=== PATIENT | female | born 2000 | race Caucasian/White ===

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

== ENCOUNTER 2018-02-04 10:42 | Day surgery (SDC) | payer MEDICAID ==
[2018-02-04] MEDS ORDERED: Propofol 10 mg/ml Inj (20 ML) ONE (11:56)
[2018-02-04] MEDS ORDERED: Sodium Chloride 0.9% 1,000 ML IV SCH (13:00)
[2018-02-04 14:10] VITALS: BP 111/68; TEMP 97.5
[2018-02-04 14:13] VITALS: PULSE 99; RESP 19; O2SAT 100
== END 2018-02-04 14:14 | disposition home or self-care (01) ==
LOC: ENDO 10:42
PROVIDERS: ATTEND Internal Medicine Gastroenterology
DX: K64.0 First degree hemorrhoids (principal); R93.3 Abnormal findings on diagnostic imaging of other parts of digestive tract
CPT/HCPCS: 45380; 84703; 88305; J2001; J2704; J7030; J7040

== ENCOUNTER 2018-08-23 19:50 | Observation (INO) | payer MEDICAID ==
[2018-08-23 22:20] LABS: BASO # 0.01 K/mm3 (0.0-2.0); BASO % 0.2 % (0.0-3.0); EOS # 0.1 (0.0-0.7); EOS % 2.5 % (1.5-5.0); HEMOGLOBIN 11.2 g/dL (12.0-16.0); LYMPH % 48.8 % (22.0-35.0); MEAN CELL VOLUME 83.7 fl (80.0-105.0); MEAN CORPUSCULAR HEMOGLOBIN 27.2 pg (25.0-35.0); MEAN CORPUSCULAR HGB CONC 32.5 g/dl (31.0-37.0); MEAN PLATELET VOLUME 10.4 fl (7.0-11.0); MONO # 0.2 (0.1-0.6); MONO % 3.7 % (1.0-6.0); RBC 4.12 10^6/uL (3.5-6.1); WHITE BLOOD COUNT 4.1 10^3/uL (4.5-11.0)
[2018-08-23 22:25] LABS: URINE BILIRUBIN NEGATIVE (NEGATIVE); URINE BLOOD NEGATIVE (NEGATIVE); URINE GLUCOSE (UA) NEGATIVE (NEGATIVE); URINE LEUKOCYTE ESTERASE TRACE Leu/uL (NEGATIVE); URINE PROTEIN NEGATIVE mg/dL (<30 mg/dL); URINE UROBILINOGEN 0.2 E.U./dL (<1 E.U./dL)
[2018-08-23 22:26] LABS: HCG,QUALITATIVE URINE NEGATIVE (NEGATIVE); URINE APPEARANCE CLEAR (CLEAR); URINE COLOR LIGHT YELLOW (YELLOW)
[2018-08-23 22:28] LABS: INR 1.05; PARTIAL THROMBOPLASTIN TIME 32.9 Seconds (26.9-38.3); PROTHROMBIN TIME 11.6 SECONDS (9.4-12.5)
[2018-08-23 22:31] LABS: ALB/GLOB RATIO 1.1 (1.1-1.8); ALBUMIN 4.2 g/dL (3.0-4.8); ALT/SGPT 37 U/L (7-56); AST/SGOT 41 U/L (14-36); BLOOD UREA NITROGEN 4 mg/dL (7-21); CALCIUM 9.3 mg/dL (8.4-10.5); GFR NON-AFRICAN AMERICAN > 60; LIPASE 57 U/L (23-300)
[2018-08-23 22:35] LABS: URINE EPITHELIAL CELLS 0 - 2 /hpf (0-5); URINE WBC 0 - 2 /hpf (0-6)
[2018-08-23] MEDS ORDERED: Iohexol 350 MG/100 ML VIAL ONE (22:43)
[2018-08-24] MEDS ORDERED: Sodium Chloride 0.9% 1,000 ML IV STA (00:16)
--- NOTE | 2018-08-24 00:17 | ED PDOC ---
Arrival/HPI - General Chief Complaint: Abdominal Pain Time Seen by Provider: 08/23/18 20:46 Historian: Patient - History of Present Illness Narrative History of Present Illness (Text): 08/24/18 00:25 18 y/o female with no significant PMH presents to the Emergency department c/o right flank pain x 1 day. Past Medical History - Provider Review Nursing Documentation Reviewed: Yes - Infectious Disease Hx of Infectious Diseases: None - Cardiac Hx Pacemaker: No - Hematological/Oncological Hx Blood Transfusions: No Hx Blood Transfusion Reaction: No - Musculoskeletal/Rheumatological Hx Musculoskeletal Disorders: No - Psychiatric Hx Emotional Abuse: No Hx Physical Abuse: No Hx Substance Use: No - Anesthesia Hx Anesthesia Reactions: No Hx Malignant Hyperthermia: No - Suicidal Assessment Feels Threatened In Home Enviroment: No Family/Social History - Physician Review Nursing Documentation Reviewed: Yes Family/Social History: No Known Family HX Smoking Status: Never Smoked Hx Alcohol Use: No Hx Substance Use: No Allergies/Home Meds Allergies/Adverse Reactions: Allergies No Known Allergies Allergy (Verified 08/23/18 21:08) Home Medications: Home Meds Medication Instructions Recorded Confirmed Ibuprofen [Motrin] 200 mg PO PRN PRN 02/04/18 02/04/18 Review of Systems - Review of Systems Constitutional: Normal. absent: Fevers Eyes: Normal. absent: Vision Changes, Photophobia ENT: Normal. absent: Sore Throat, Epistaxis Respiratory: Normal. absent: SOB, Cough Cardiovascular: Normal. absent: Chest Pain, Palpitations, Syncope Gastrointestinal: Abdominal Pain. absent: Stool Changes, Nausea, Vomiting, Appetite Changes Genitourinary Female: Normal. absent: Dysuria, Frequency, Vaginal Bleeding, Vaginal Discharge Musculoskeletal: Normal. absent: Back Pain Skin: Normal. absent: Rash, Skin Lesions Neurological: Normal. absent: Headache, Dizziness Endocrine: Normal Hemo/Lymphatic: Normal Psychiatric: Normal Physical Exam Vital Signs Reviewed: Yes Vital Signs Temp Pulse Resp BP Pulse Ox 08/23/18 23:28 92 H 16 120/70 98 08/23/18 21:08 98.7 F 95 H 18 121/71 98 Temperature: Afebrile Blood Pressure: Normal Pulse: Regular Respiratory Rate: Normal Appearance: Positive for: Well-Appearing, Non-Toxic, Comfortable Pain Distress: None Mental Status: Positive for: Alert and Oriented X 3 - Systems Exam Head: Present: Atraumatic, Normocephalic Pupils: Present: PERRL Extroacular Muscles: Present: EOMI Conjunctiva: Present: Normal Mouth: Present: Moist Mucous Membranes Neck: Present: Normal Range of Motion. No: Meningeal Signs, Paraspinal Tenderness Respiratory/Chest: Present: Clear to Auscultation, Good Air Exchange. No: Respiratory Distress, Accessory Muscle Use Cardiovascular: Present: Regular Rate and Rhythm, Normal S1, S2, Peripheal Pulses Present Abdomen: Present: Tenderness (exquisite to right flank), Normal Bowel Sounds, Guarding (right flank). No: Distention, Peritoneal Signs Back: Present: Normal Inspection. No: CVA Tenderness, Paraspinal Tenderness Upper Extremity: Present: Normal Inspection, Normal ROM, NORMAL PULSES, Neurovascularly Intact, Capillary Refill < 2s. No: Cyanosis, Edema, Tenderness, Temperature Abnormalties Lower Extremity: Present: Normal Inspection, NORMAL PULSES, Normal ROM, Neurovascularly Intact, Capillary Refill < 2 s. No: Edema, Temperature Abnormalties Neurological: Present: GCS=15, CN II-XII Intact, Speech Normal, Motor Func Grossly Intact, Normal Sensory Function, Gait Normal Skin: Present: Warm, Dry, Normal Color. No: Rashes Psychiatric: Present: Alert, Oriented x 3, Normal Insight, Normal Concentration, Normal Affect, Normal Mood Medical Decision Making ED Course and Treatment: 08/24/18 00:[address] Odonnell who accepted patient for inpatient admission to remote telemetry floor with diagnosis of abdominal wall infection. Will notify medical staff physician. - Lab Interpretations Lab Results: PT 11.6 SECONDS (9.4-12.5) 08/23/18 22:04 INR 1.05 08/23/18 22:04 APTT 32.9 Seconds (26.9-38.3) 08/23/18 22:04 Total Bilirubin 0.4 mg/dL (0.2-1.3) 08/23/18 22:04 AST 41 U/L (14-36) H D 08/23/18 22:04 ALT 37 U/L (7-56) 08/23/18 22:04 Alkaline Phosphatase 59 U/L (38-126) 08/23/18 22:04 Total Protein 7.9 g/dL (5.8-8.3) 08/23/18 22:04 Albumin 4.2 g/dL (3.0-4.8) 08/23/18 22:04 Globulin 3.7 gm/dL 08/23/18 22:04 Albumin/Globulin Ratio 1.1 (1.1-1.8) 08/23/18 22:04 Lipase 57 U/L (23-300) 08/23/18 22:04 Urine Color Light yellow (YELLOW) 08/23/18 22:04 Urine Appearance Clear (CLEAR) 08/23/18 22:04 Urine pH 7.0 (4.7-8.0) 08/23/18 22:04 Ur Specific [place] 1.015 (1.005-1.035) 08/23/18 22:04 Urine Protein Negative mg/dL (<30 mg/dL) 08/23/18 22:04 Urine Glucose (UA) Negative mg/dL (NEGATIVE) 08/23/18 22:04 Urine Ketones Negative mg/dL (NEGATIVE) 08/23/18 22:04 Urine Blood Negative (NEGATIVE) 08/23/18 22:04 Urine Nitrate Negative (NEGATIVE) 08/23/18 22:04 Urine Bilirubin Negative (NEGATIVE) 08/23/18 22:04 Urine Urobilinogen 0.2 E.U./dL (<1 E.U./dL) 08/23/18 22:04 Ur Leukocyte Esterase Trace Tao/uL (NEGATIVE) H 08/23/18 22:04 Urine RBC None /hpf (0-2) 08/23/18 22:04 Urine WBC 0 - 2 /hpf (0-6) 08/23/18 22:04 Ur Epithelial Cells 0 - 2 /hpf (0-5) 08/23/18 22:04 Urine HCG, Qual Negative (NEGATIVE) 08/23/18 22:04 Urine HCG, Qual Negative (NEGATIVE) 08/23/18 22:04 - RAD Interpretation Narrative RAD Interpretations (Text): CT Abdomen and Pelvis: LUNG BASES: The lung bases appear clear. No pleural effusions are seen. LIVER: Mild hepatomegaly. The liver measured 16.8 cm in the midclavicular line. GALLBLADDER AND BILE DUCTS: The gallbladder appears within normal limits. No radioopaque gallstones are seen. No biliary ductal dilatation is evident. PANCREAS: Unremarkable. SPLEEN: Unremarkable. ADRENAL GLANDS: Unremarkable. KIDNEYS, URETERS, AND BLADDER: The kidneys appear within normal limits. There is no hydronephrosis or hydroureter. No urinary calculi are seen. The urinary bladder appeared normal in size and configuration. STOMACH AND BOWEL: Unremarkable appearance of the stomach. No evidence of bowel obstruction. Mild mucosal wall thickening and fluid in the lumen is seen in the ileal small intestinal tract thought compatible with ileitis. Infectious or inflammatory etiologies are thought most likely. No evidence suggesting colitis. APPENDIX: No evidence of acute appendicitis on CT examination. PERITONEUM: No free fluid. No free air. LYMPH NODES: No lymphadenopathy is evident. REPRODUCTIVE: Multiple bilateral ovarian follicles are identified. Otherwise, unremarkable as visualized. VASCULATURE: No evidence of abdominal aortic aneurysm. BONES: No aggressive appearing osseous lesion. No acute osseous pathology evident. SOFT TISSUES: In the anterolateral soft tissues of the abdominal wall; there is identified subcutaneous edema and stranding thought compatible with cellulitis. Edema is interposed between the muscle layers of the abdominal wall compatible with myositis and possible fasciitis. No definite abscess formation detected. IMPRESSION: 1. Findings described above involving the anterolateral abdominal wall musculature and subcutaneous tissues compatible with myositis and possible fasciitis, with associated cellulitis. 2. Evidence of ileitis. 3. Mild hepatomegaly. Electronically signed on Aug 24, 2018 12:06:23 AM EDT by: Neida Hernández M.D., Certified by LUZ MARIA CONTRERAS, Neuroradiology Radiology Orders: 08/23/18 21:22 CHEST PORTABLE [RAD] Stat 08/23/18 21:23 ABD & PELVIS IV CONTRAST ONLY [CT] Stat Channel Machine Operator: Radiologist Disposition/Present on Arrival - Present on Arrival History of DVT/PE: No History of Uncontrolled Diabetes: No Urinary Catheter: No History of Decub. Ulcer: No History Surgical Site Infection Following: None - Disposition Forms: [employer] (Portuguese)
[2018-08-24] MEDS ORDERED: Vancomycin 1gm in NS 250ml 1 GM/250 ML BAG IVPB STA (00:22)
[2018-08-24] MEDS ORDERED: Piperacillin/Tazobact 3.375 gm 100 ML IVPB STA (00:22)
--- NOTE | 2018-08-24 00:58 | CP.PCM.HP ---
<Syd Bobby - Last Filed: 08/24/18 01:49> History of Present Illness - History of Present Illness History of Present Illness: Dr Bobby [facility] Hospitalist Service 18F pmhx of chronic abdominal pain of 2 years duration presents to the Ed with new onset R sided flank pain that is sharp, needle like in nature, and feels like there is a mass underlying. Pt first noticed the pain 2 days ago and has been constant in nature since. Pt did not take anything at home and was just waiting for the pain to go away. Pt says the pain has not gotten better while she's been in ER. Pt says its tender to touch. She has not noticed any new lesions nor can she feel any worsening swelling. Denies any fevers chills, SOB nausea, vomiting, rash, bleeding, pain with [place], back pain, adnexal tenderness, decreased appetite, change in stool/urine PMHx: 2 year undefined abdominal pain PSx: Colonoscopy 02/12 w/ biopsy - normal ileum tissue FH: denies Soc: denies smoking etoh or drug use Allergies: Denies Home Rx: none Present on Admission - Present on Admission Any Indicators Present on Admission: No Review of Systems - Review of Systems All systems: reviewed and no additional remarkable complaints except (as per HPI) - Constitutional Constitutional: absent: Chills, Fever, Headache, Night Sweats, Weight Gain, Weight Loss, Weakness - EENT Eyes: absent: Change in Vision Nose/Mouth/Throat: absent: Dysphagia - Cardiovascular Cardiovascular: absent: Chest Pain, Diaphoresis, Dyspnea, Pain Radiating to Arm/Neck/Jaw, Orthopnea - Respiratory Respiratory: absent: Cough Past Patient History - Infectious Disease Hx of Infectious Diseases: None - Past Social History Smoking Status: Never Smoked - CARDIAC Hx Pacemaker: No - HEMATOLOGICAL/ONCOLOGICAL Hx Blood Transfusions: No Hx Blood Transfusion Reaction: No - MUSCULOSKELETAL/RHEUMATOLOGICAL Hx Musculoskeletal Disorders: No - PSYCHIATRIC Hx Emotional Abuse: No Hx Physical Abuse: No Hx Substance Use: No - SURGICAL HISTORY Hx Surgeries: No - ANESTHESIA Hx Anesthesia Reactions: No Hx Malignant Hyperthermia: No Meds Allergies/Adverse Reactions: Allergies Allergy/AdvReac Type Severity Reaction Status Date / Time No Known Allergies Allergy Verified 08/23/18 21:08 Physical Exam - Constitutional Appears: Well, Non-toxic, No Acute Distress - Head Exam Head Exam: ATRAUMATIC, NORMAL INSPECTION - Eye Exam Eye Exam: EOMI, Normal appearance, PERRL. absent: Scleral icterus Pupil Exam: NORMAL ACCOMODATION - ENT Exam ENT Exam: Mucous Membranes Moist - Neck Exam Neck exam: Positive for: Normal Inspection - Respiratory Exam Respiratory Exam: Clear to Auscultation Bilateral. absent: Rhonchi, Wheezes - Cardiovascular Exam Cardiovascular Exam: RRR, +S1, +S2 - GI/Abdominal Exam GI & Abdominal Exam: Normal Bowel Sounds, Tenderness (R lateral abdomen, no masses/abscess palpated, no erythema noted, no marginated lesion noted). absent: Rebound, Rigid - Extremities Exam Extremities exam: Positive for: pedal pulses present. Negative for: joint swelling, pedal edema - Neurological Exam Neurological exam: Alert, CN II-XII Intact, Oriented x3 - Psychiatric Exam Psychiatric exam: Normal Affect, Normal Mood - Skin Skin Exam: Dry, Normal Color, Warm Results - Vital Signs Recent Vital Signs: Last Vital Signs Temp 98.7 F 08/23/18 21:08 Pulse 92 H 08/23/18 23:28 Resp 16 08/23/18 23:28 BP 120/70 08/23/18 23:28 Pulse Ox 98 08/23/18 23:28 - Labs Result Diagrams: 08/23/18 22:04 08/23/18 22:04 Labs: Laboratory Results - last 24 hr 08/23/18 08/23/18 08/23/18 22:04 22:04 22:04 WBC 4.1 L RBC 4.12 Hgb 11.2 L Hct 34.5 L MCV 83.7 D MCH 27.2 MCHC 32.5 RDW 13.0 Plt Count 167 MPV 10.4 Neut % (Auto) 44.8 L Lymph % (Auto) 48.8 H [place] % (Auto) 3.7 Eos % (Auto) 2.5 Baso % (Auto) 0.2 Lymph # (Auto) 2.0 [place] # (Auto) 0.2 Eos # (Auto) 0.1 Baso # (Auto) 0.01 Absolute Neuts (auto) 1.82 PT 11.6 INR 1.05 APTT 32.9 Sodium Potassium Chloride Carbon Dioxide Anion Gap BUN Creatinine Est GFR ( Amer) Est GFR (Non-Af Amer) Random Glucose Calcium Magnesium Total Bilirubin AST ALT Alkaline Phosphatase Total Protein Albumin Globulin Albumin/Globulin Ratio Lipase Urine Color Light yellow Urine Appearance Clear Urine pH 7.0 Ur Specific [place] 1.015 Urine Protein Negative Urine Glucose (UA) Negative Urine Ketones Negative Urine Blood Negative Urine Nitrate Negative Urine Bilirubin Negative Urine Urobilinogen 0.2 Ur Leukocyte Esterase Trace H Urine RBC None Urine WBC 0 - 2 Ur Epithelial Cells 0 - 2 Urine HCG, Qual Negative 08/23/18 22:04 WBC RBC Hgb Hct MCV MCH MCHC RDW Plt Count MPV Neut % (Auto) Lymph % (Auto) [place] % (Auto) Eos % (Auto) Baso % (Auto) Lymph # (Auto) [place] # (Auto) Eos # (Auto) Baso # (Auto) Absolute Neuts (auto) PT INR APTT Sodium 141 Potassium 3.7 Chloride 107 Carbon Dioxide 24 Anion Gap 14 BUN 4 L Creatinine 0.4 L Est GFR ( Amer) > 60 Est GFR (Non-Af Amer) > 60 Random Glucose 88 Calcium 9.3 Magnesium 1.8 Total Bilirubin 0.4 AST 41 H D ALT 37 Alkaline Phosphatase 59 Total Protein 7.9 Albumin 4.2 Globulin 3.7 Albumin/Globulin Ratio 1.1 Lipase 57 Urine Color Urine Appearance Urine pH Ur Specific [place] Urine Protein Urine Glucose (UA) Urine Ketones Urine Blood Urine Nitrate Urine Bilirubin Urine Urobilinogen Ur Leukocyte Esterase Urine RBC Urine WBC Ur Epithelial Cells Urine HCG, Qual Assessment & Plan - Assessment and Plan (Free Text) Assessment: 18F admitted for possible myositis/fascitis Plan: Possible Myositis/Fasciitis/Ileitis -CT abd pelv: prelim read shows signs of possible myositis/fascitis/ileitis -Afebrile, WBCs wnl -Vanc Zosyn IVPB given in ED -Flagyl 500 q8 IVPB -Toradol 30 ivp stat -Zofran 4 ivp q4 prn -GI Dr Arzola consulted: f/u recs -ID Dr Odell consulted: f/u recs Chronic Abdominal Pain -Colonoscopy from 01/2018 reviewed -GI consulted -f/u recs PPx -Liquid Diet CK PGY1 <Virginia Odonnell - Last Filed: 08/24/18 20:26> Results - Vital Signs Recent Vital Signs: Last Vital Signs Temp 97.8 F 08/24/18 16:46 Pulse 91 H 08/24/18 16:46 Resp 20 08/24/18 16:46 BP 125/76 08/24/18 16:46 Pulse Ox 98 08/24/18 16:46 - Labs Result Diagrams: 08/23/18 22:04 08/23/18 22:04 Labs: Laboratory Results - last 24 hr 08/23/18 08/23/18 08/23/18 22:04 22:04 22:04 WBC 4.1 L RBC 4.12 Hgb 11.2 L Hct 34.5 L MCV 83.7 D MCH 27.2 MCHC 32.5 RDW 13.0 Plt Count 167 MPV 10.4 Neut % (Auto) 44.8 L Lymph % (Auto) 48.8 H [place] % (Auto) 3.7 Eos % (Auto) 2.5 Baso % (Auto) 0.2 Lymph # (Auto) 2.0 [place] # (Auto) 0.2 Eos # (Auto) 0.1 Baso # (Auto) 0.01 Absolute Neuts (auto) 1.82 PT 11.6 INR 1.05 APTT 32.9 Sodium Potassium Chloride Carbon Dioxide Anion Gap BUN Creatinine Est GFR ( Amer) Est GFR (Non-Af Amer) Random Glucose Calcium Magnesium Total Bilirubin AST ALT Alkaline Phosphatase Total Creatine Kinase CK-MB (CK-2) CK-MB (CK-2) % Total Protein Albumin Globulin Albumin/Globulin Ratio Lipase Urine Color Light yellow Urine Appearance Clear Urine pH 7.0 Ur Specific [place] 1.015 Urine Protein Negative Urine Glucose (UA) Negative Urine Ketones Negative Urine Blood Negative Urine Nitrate Negative Urine Bilirubin Negative Urine Urobilinogen 0.2 Ur Leukocyte Esterase Trace H Urine RBC None Urine WBC 0 - 2 Ur Epithelial Cells 0 - 2 Urine HCG, Qual Negative RPR 08/23/18 08/24/18 08/24/18 22:04 10:15 10:15 WBC RBC Hgb Hct MCV MCH MCHC RDW Plt Count MPV Neut % (Auto) Lymph % (Auto) [place] % (Auto) Eos % (Auto) Baso % (Auto) Lymph # (Auto) [place] # (Auto) Eos # (Auto) Baso # (Auto) Absolute Neuts (auto) PT INR APTT Sodium 141 Potassium 3.7 Chloride 107 Carbon Dioxide 24 Anion Gap 14 BUN 4 L Creatinine 0.4 L Est GFR ( Amer) > 60 Est GFR (Non-Af Amer) > 60 Random Glucose 88 Calcium 9.3 Magnesium 1.8 Total Bilirubin 0.4 AST 41 H D ALT 37 Alkaline Phosphatase 59 Total Creatine Kinase 762 H CK-MB (CK-2) < 0.2 CK-MB (CK-2) % Cancelled Total Protein 7.9 Albumin 4.2 Globulin 3.7 Albumin/Globulin Ratio 1.1 Lipase 57 Urine Color Urine Appearance Urine pH Ur Specific [place] Urine Protein Urine Glucose (UA) Urine Ketones Urine Blood Urine Nitrate Urine Bilirubin Urine Urobilinogen Ur Leukocyte Esterase Urine RBC Urine WBC Ur Epithelial Cells Urine HCG, Qual RPR Nonreactive Attending/Attestation - Attestation I have personally seen and examined this patient.: Yes I have fully participated in the care of the patient.: Yes I have reviewed all pertinent clinical information: Yes
[2018-08-24 02:25] VITALS: BMI 27.6
[2018-08-24 02:28] VITALS: RESP 20
[2018-08-24 04:30] VITALS: TEMP 97.8
[2018-08-24] MEDS ORDERED: metroNIDAZOLE IV 500 mg/100 ml 500 MG/100 ML BAG IVPB SCH (06:00)
--- NOTE | 2018-08-24 08:26 | RAD ---
Date of service: 08/23/2018 HISTORY: abd pain COMPARISON: No prior. TECHNIQUE: 1 view obtained. FINDINGS: LUNGS: No active pulmonary disease. PLEURA: No significant pleural effusion identified, no pneumothorax apparent. CARDIOVASCULAR: No aortic atherosclerotic calcification present. Normal cardiac size. No pulmonary vascular congestion. OSSEOUS STRUCTURES: No significant abnormalities. VISUALIZED UPPER ABDOMEN: Normal. OTHER FINDINGS: None. IMPRESSION: No active disease.
--- NOTE | 2018-08-24 09:06 | CT ---
Date of service: 08/23/2018 PROCEDURE: CT Abdomen and Pelvis with contrast HISTORY: right sided pain COMPARISON: None. TECHNIQUE: Contrast dose: 100 cc of Omni 350 Radiation dose: Total exam DLP = 566.83 mGy-cm. This CT exam was performed using one or more of the following dose reduction techniques: Automated exposure control, adjustment of the mA and/or kV according to patient size, and/or use of iterative reconstruction technique. FINDINGS: LOWER THORAX: Unremarkable. LIVER: Unremarkable. No gross lesion or ductal dilatation. GALLBLADDER AND BILE DUCTS: Unremarkable. PANCREAS: Unremarkable. No gross lesion or ductal dilatation. SPLEEN: Unremarkable. ADRENALS: Unremarkable. No mass. KIDNEYS AND URETERS: Unremarkable. No hydronephrosis. No solid mass. VASCULATURE: Unremarkable. No aortic aneurysm. No aortic atherosclerotic calcification or mural plaque present. BOWEL: Unremarkable. No obstruction. No gross mural thickening. APPENDIX: Normal appendix. PERITONEUM: Unremarkable. No free fluid. No free air. There is some edema within the muscles of the anterior abdominal wall as well as adjacent subcutaneous edema. The findings are symmetrical. Clinical correlation is suggested. This could be related to some type of exercise induced muscular trauma. LYMPH NODES: Unremarkable. No enlarged lymph nodes. BLADDER: Unremarkable. REPRODUCTIVE: Unremarkable. BONES: No acute fracture. OTHER FINDINGS: The report concurs with the preliminary [facility] report IMPRESSION: There is some edema within the muscles of the anterior abdominal wall as well as adjacent subcutaneous edema. The findings are symmetrical. Clinical correlation is suggested. This could be related to some type of exercise induced muscular trauma. No acute intra-abdominal findings
[2018-08-24] MEDS ORDERED: cefTRIAXone 1 gm 1 GM/100 ML BAG IVPB SCH (10:00)
[2018-08-24] MEDS: Naproxen 550 mg Tab PO SCH ×2 (13:04→17:31)
[2018-08-24] MEDS ORDERED: POLYETHYLENE GLYCOL 3350 17 GM/Dose PACKET PO SCH (13:15)
--- NOTE | 2018-08-24 13:18 | CP.PCM.CON ---
<Neal Berger - Last Filed: 08/24/18 13:13> History of Present Illness - History of Present Illness History of Present Illness: PGY-4 GI Fellow Prog Note 18 yo F with h/o abdominal pain (2 year undefined intermittent) presenting with acute abd pain. She states that for the last 2 days she has had constant, sharp, non-radiating RUQ/R flank pain that is usually worse with movement and a mbulation. She states that she did not take anything to help with pain. In the past, she states she has taken 1 tab of ibuprofen PRN without relief. She report following with a GI doc as outpatient recently with unremarkable blood work and ultrasound. She denied any fevers, chills, CP, SOB, N/V, dysuria, nor signs of bleeding. She reports daily formed BMs. She had CSPY in Jan 2018 with poor prep but TI was intubated and mucosa was normal with Bx negative. 12 point ROS negative other than stated above PMHx: See above SurgHx: Colonoscopy 02/12 w/ biopsy - normal ileum tissue but poor prep; no prior EGDs Meds: none FH: denies Soc: denies smoking etoh or drug use Allergies: Denies Past Patient History - Infectious Disease Hx of Infectious Diseases: None - Past Social History Smoking Status: Never Smoked - CARDIAC Hx Cardiac Disorders: No - PULMONARY Hx Respiratory Disorders: No - NEUROLOGICAL Hx Neurological Disorder: No - HEENT Hx HEENT Problems: No - RENAL Hx Chronic Kidney Disease: No - ENDOCRINE/METABOLIC Hx Endocrine Disorders: No - HEMATOLOGICAL/ONCOLOGICAL Hx Blood Disorders: No - INTEGUMENTARY Hx Dermatological Problems: No - MUSCULOSKELETAL/RHEUMATOLOGICAL Hx Musculoskeletal Disorders: No Hx Falls: No - GASTROINTESTINAL Hx Gastrointestinal Disorders: No - GENITOURINARY/GYNECOLOGICAL Hx Genitourinary Disorders: No - PSYCHIATRIC Hx Psychophysiologic Disorder: No - SURGICAL HISTORY Hx Surgeries: No Other/Comment: colonscopy - ANESTHESIA Hx Anesthesia Reactions: No Hx Malignant Hyperthermia: No Meds Allergies/Adverse Reactions: Allergies Allergy/AdvReac Type Severity Reaction Status Date / Time No Known Allergies Allergy Verified 08/23/18 21:08 - Medications Medications: Current Medications Ceftriaxone Sodium (Rocephin 1 Gram Ivpb) 1 gm in 100 mls @ 100 mls/hr IVPB DAILY ANTOINE; Protocol Stop: 09/01/18 10:01 Naproxen (Anaprox Ds) 550 mg PO BID [facility] Ondansetron HCl (Zofran Inj) 4 mg IVP Q4 PRN PRN Reason: Nausea/Vomiting Polyethylene Glycol (Miralax) 17 gm PO DAILY [facility] Physical Exam - Constitutional Appears: Well, No Acute Distress - Head Exam Head Exam: ATRAUMATIC, NORMAL INSPECTION - Eye Exam Eye Exam: EOMI. absent: Scleral icterus - ENT Exam ENT Exam: Mucous Membranes Moist. absent: Mucous Membranes Dry - Respiratory Exam Respiratory Exam: Clear to Auscultation Bilateral, NORMAL BREATHING PATTERN. absent: Accessory Muscle Use, Respiratory Distress - Cardiovascular Exam Cardiovascular Exam: REGULAR RHYTHM, RRR - GI/Abdominal Exam GI & Abdominal Exam: Guarding, Normal Bowel Sounds, Soft, Tenderness. absent: Bruit, Diminished Bowel Sounds, Distended, Firm, Hernia, Organomegaly, Pulsatile Mass, Rebound, Rigid Additional comments: ttp in RUQ with vol guarding, no obv rashes - Rectal Exam Rectal Exam: Deferred - Extremities Exam Extremities exam: Positive for: normal inspection. Negative for: pedal edema - Neurological Exam Neurological exam: Alert, CN II-XII Intact - Psychiatric Exam Psychiatric exam: Normal Affect, Normal Mood - Skin Skin Exam: Normal Color, Warm Results - Vital Signs Recent Vital Signs: Last Vital Signs Temp 97.8 F 08/24/18 02:15 Pulse 73 08/24/18 02:15 Resp 20 08/24/18 02:15 BP 125/78 08/24/18 02:15 Pulse Ox 97 08/24/18 02:15 - Labs Result Diagrams: 08/23/18 22:04 08/23/18 22:04 Labs: Laboratory Results - last 24 hr 08/23/18 08/23/18 08/23/18 22:04 22:04 22:04 WBC 4.1 L RBC 4.12 Hgb 11.2 L Hct 34.5 L MCV 83.7 D MCH 27.2 MCHC 32.5 RDW 13.0 Plt Count 167 MPV 10.4 Neut % (Auto) 44.8 L Lymph % (Auto) 48.8 H [place] % (Auto) 3.7 Eos % (Auto) 2.5 Baso % (Auto) 0.2 Lymph # (Auto) 2.0 [place] # (Auto) 0.2 Eos # (Auto) 0.1 Baso # (Auto) 0.01 Absolute Neuts (auto) 1.82 PT 11.6 INR 1.05 APTT 32.9 Sodium Potassium Chloride Carbon Dioxide Anion Gap BUN Creatinine Est GFR ( Amer) Est GFR (Non-Af Amer) Random Glucose Calcium Magnesium Total Bilirubin AST ALT Alkaline Phosphatase Total Protein Albumin Globulin Albumin/Globulin Ratio Lipase Urine Color Light yellow Urine Appearance Clear Urine pH 7.0 Ur Specific [place] 1.015 Urine Protein Negative Urine Glucose (UA) Negative Urine Ketones Negative Urine Blood Negative Urine Nitrate Negative Urine Bilirubin Negative Urine Urobilinogen 0.2 Ur Leukocyte Esterase Trace H Urine RBC None Urine WBC 0 - 2 Ur Epithelial Cells 0 - 2 Urine HCG, Qual Negative 08/23/18 22:04 WBC RBC Hgb Hct MCV MCH MCHC RDW Plt Count MPV Neut % (Auto) Lymph % (Auto) [place] % (Auto) Eos % (Auto) Baso % (Auto) Lymph # (Auto) [place] # (Auto) Eos # (Auto) Baso # (Auto) Absolute Neuts (auto) PT INR APTT Sodium 141 Potassium 3.7 Chloride 107 Carbon Dioxide 24 Anion Gap 14 BUN 4 L Creatinine 0.4 L Est GFR ( Amer) > 60 Est GFR (Non-Af Amer) > 60 Random Glucose 88 Calcium 9.3 Magnesium 1.8 Total Bilirubin 0.4 AST 41 H D ALT 37 Alkaline Phosphatase 59 Total Protein 7.9 Albumin 4.2 Globulin 3.7 Albumin/Globulin Ratio 1.1 Lipase 57 Urine Color Urine Appearance Urine pH Ur Specific [place] Urine Protein Urine Glucose (UA) Urine Ketones Urine Blood Urine Nitrate Urine Bilirubin Urine Urobilinogen Ur Leukocyte Esterase Urine RBC Urine WBC Ur Epithelial Cells Urine HCG, Qual Assessment & Plan - Assessment and Plan (Free Text) Assessment: 18 yo F presenting with acute on chronic abd pain. # Abd Pain, Acute on Chronic: Suspect MSK (myositis/fasciitis on CT) related as no signs/symptoms pointing to GI tract. There is a fair amount of stool in colon on CT; so may benefit from daily bowel regimen. Otherwise, had CSPY in Jan [address] Josue with TI bx negative, though was a poor prep. No prior EGD and follows with a different outpatient GI doc. Plan: - Naproxen 550 mg BID x 2 weeks for MSK pain - Daily miralax - Stopped metroniazole, consider DC ceftriaxone unless concerned about urinary source - Counseled pt to f/u with outpatient providers - OK to DC later today from GI standpoint Pt seen and examined with Dr. Arzola; please see attestation for further recs/changes <Bhavya Arzola - Last Filed: 08/24/18 21:49> Results - Vital Signs Recent Vital Signs: Last Vital Signs Temp 97.8 F 08/24/18 16:46 Pulse 91 H 08/24/18 16:46 Resp 20 08/24/18 16:46 BP 125/76 08/24/18 16:46 Pulse Ox 98 08/24/18 16:46 - Labs Result Diagrams: 08/23/18 22:04 08/23/18 22:04 Labs: Laboratory Results - last 24 hr 08/23/18 08/23/18 08/23/18 22:04 22:04 22:04 WBC 4.1 L RBC 4.12 Hgb 11.2 L Hct 34.5 L MCV 83.7 D MCH 27.2 MCHC 32.5 RDW 13.0 Plt Count 167 MPV 10.4 Neut % (Auto) 44.8 L Lymph % (Auto) 48.8 H [place] % (Auto) 3.7 Eos % (Auto) 2.5 Baso % (Auto) 0.2 Lymph # (Auto) 2.0 [place] # (Auto) 0.2 Eos # (Auto) 0.1 Baso # (Auto) 0.01 Absolute Neuts (auto) 1.82 PT 11.6 INR 1.05 APTT 32.9 Sodium Potassium Chloride Carbon Dioxide Anion Gap BUN Creatinine Est GFR ( Amer) Est GFR (Non-Af Amer) Random Glucose Calcium Magnesium Total Bilirubin AST ALT Alkaline Phosphatase Total Creatine Kinase CK-MB (CK-2) CK-MB (CK-2) % Total Protein Albumin Globulin Albumin/Globulin Ratio Lipase Urine Color Light yellow Urine Appearance Clear Urine pH 7.0 Ur Specific [place] 1.015 Urine Protein Negative Urine Glucose (UA) Negative Urine Ketones Negative Urine Blood Negative Urine Nitrate Negative Urine Bilirubin Negative Urine Urobilinogen 0.2 Ur Leukocyte Esterase Trace H Urine RBC None Urine WBC 0 - 2 Ur Epithelial Cells 0 - 2 Urine HCG, Qual Negative RPR 08/23/18 08/24/18 08/24/18 22:04 10:15 10:15 WBC RBC Hgb Hct MCV MCH MCHC RDW Plt Count MPV Neut % (Auto) Lymph % (Auto) [place] % (Auto) Eos % (Auto) Baso % (Auto) Lymph # (Auto) [place] # (Auto) Eos # (Auto) Baso # (Auto) Absolute Neuts (auto) PT INR APTT Sodium 141 Potassium 3.7 Chloride 107 Carbon Dioxide 24 Anion Gap 14 BUN 4 L Creatinine 0.4 L Est GFR ( Amer) > 60 Est GFR (Non-Af Amer) > 60 Random Glucose 88 Calcium 9.3 Magnesium 1.8 Total Bilirubin 0.4 AST 41 H D ALT 37 Alkaline Phosphatase 59 Total Creatine Kinase 762 H CK-MB (CK-2) < 0.2 CK-MB (CK-2) % Cancelled Total Protein 7.9 Albumin 4.2 Globulin 3.7 Albumin/Globulin Ratio 1.1 Lipase 57 Urine Color Urine Appearance Urine pH Ur Specific [place] Urine Protein Urine Glucose (UA) Urine Ketones Urine Blood Urine Nitrate Urine Bilirubin Urine Urobilinogen Ur Leukocyte Esterase Urine RBC Urine WBC Ur Epithelial Cells Urine HCG, Qual RPR Nonreactive Attending/Attestation - Attestation I have personally seen and examined this patient.: Yes I have fully participated in the care of the patient.: Yes I have reviewed all pertinent clinical information: Yes Notes (Text): 08/24/18 21:47 I have seen and examined the patient with the GI fellow. 18 yo F with acute on chronic R sided flank pain. Labs normal. CT abd/pelvis with myositis/fasciitis and significant amount of stool throughout. Colonoscopy in 01/2018 (Dr. Josue) with poor prep, but TI intubated with negative bxs. General: NAD, sitting up in bed Abd: soft, tender along R flank, non-distended Ext: no pain with straight leg raise on either side Plan: -unclear etiology of abdominal pain, but suspect musculoskeletal in nature -advise Naproxen 500 mg po bid x 2 wks -Miralax 17 gm po daily and 2L hydration to facilitate BMs -otherwise, stable for d/c from GI standpoint
[2018-08-24 14:11] LABS: CK-MB < 0.2 ng/mL (0.0-3.6)
[2018-08-24 16:47] VITALS: BP 125/76; PULSE 91; O2SAT 98
--- NOTE | 2018-08-24 19:47 | CP.PCM.DIS ---
<Anthony Ji - Last Filed: 08/24/18 19:39> Provider - Provider Date of Admission: 08/24/18 00:41 Attending physician: Bismark Tabares MD Consults: 08/24/18 01:25 Gastroenterology Consult Routine Comment: Consulting Provider: Bhavya Arzola Consulting Physician: Bhavya Arzola Reason for Consult: abdominal tenderness, myositis/fascitis seen on prelim CT Infectious Disease Consult Routine Comment: Consulting Provider: Chai Odell Consulting Physician: Chai Odell Reason for Consult: abdominal tenderness, myositis/fascitis seen on prelim CT Time Spent in preparation of Discharge (in minutes): 35 Hospital Course - Lab Results Lab Results: Most Recent Lab Values WBC 4.1 10^3/uL (4.5-11.0) L 08/23/18 22:04 RBC 4.12 10^6/uL (3.5-6.1) 08/23/18 22:04 Hgb 11.2 g/dL (12.0-16.0) L 08/23/18 22:04 Hct 34.5 % (36.0-48.0) L 08/23/18 22:04 MCV 83.7 fl (80.0-105.0) D 08/23/18 22:04 MCH 27.2 pg (25.0-35.0) 08/23/18 22:04 MCHC 32.5 g/dl (31.0-37.0) 08/23/18 22:04 RDW 13.0 % (11.5-14.5) 08/23/18 22:04 Plt Count 167 10^3/uL (120.0-450.0) 08/23/18 22:04 MPV 10.4 fl (7.0-11.0) 08/23/18 22:04 Neut % (Auto) 44.8 % (50.0-68.0) L 08/23/18 22:04 Lymph % (Auto) 48.8 % (22.0-35.0) H 08/23/18 22:04 [place] % (Auto) 3.7 % (1.0-6.0) 08/23/18 22:04 Eos % (Auto) 2.5 % (1.5-5.0) 08/23/18 22:04 Baso % (Auto) 0.2 % (0.0-3.0) 08/23/18 22:04 Lymph # (Auto) 2.0 (1.2-3.4) 08/23/18 22:04 [place] # (Auto) 0.2 (0.1-0.6) 08/23/18 22:04 Eos # (Auto) 0.1 (0.0-0.7) 08/23/18 22:04 Baso # (Auto) 0.01 K/mm3 (0.0-2.0) 08/23/18 22:04 Absolute Neuts (auto) 1.82 (1.4-6.5) 08/23/18 22:04 PT 11.6 SECONDS (9.4-12.5) 08/23/18 22:04 INR 1.05 08/23/18 22:04 APTT 32.9 Seconds (26.9-38.3) 08/23/18 22:04 Sodium 141 mmol/L (132-148) 08/23/18 22:04 Potassium 3.7 mmol/L (3.6-5.0) 08/23/18 22:04 Chloride 107 mmol/L (98-107) 08/23/18 22:04 Carbon Dioxide 24 mmol/L (21-33) 08/23/18 22:04 Anion Gap 14 (10-20) 08/23/18 22:04 BUN 4 mg/dL (7-21) L 08/23/18 22:04 Creatinine 0.4 mg/dl (0.7-1.2) L 08/23/18 22:04 Est GFR ( Amer) > 60 08/23/18 22:04 Est GFR (Non-Af Amer) > 60 08/23/18 22:04 Random Glucose 88 mg/dL (70-110) 08/23/18 22:04 Calcium 9.3 mg/dL (8.4-10.5) 08/23/18 22:04 Magnesium 1.8 mg/dL (1.7-2.2) 08/23/18 22:04 Total Bilirubin 0.4 mg/dL (0.2-1.3) 08/23/18 22:04 AST 41 U/L (14-36) H D 08/23/18 22:04 ALT 37 U/L (7-56) 08/23/18 22:04 Alkaline Phosphatase 59 U/L (38-126) 08/23/18 22:04 Total Creatine Kinase 762 U/L (35-230) H 08/24/18 10:15 CK-MB (CK-2) < 0.2 ng/mL (0.0-3.6) 08/24/18 10:15 CK-MB (CK-2) % Cancelled 08/24/18 10:15 Total Protein 7.9 g/dL (5.8-8.3) 08/23/18 22:04 Albumin 4.2 g/dL (3.0-4.8) 08/23/18 22:04 Globulin 3.7 gm/dL 08/23/18 22:04 Albumin/Globulin Ratio 1.1 (1.1-1.8) 08/23/18 22:04 Lipase 57 U/L (23-300) 08/23/18 22:04 Urine Color Light yellow (YELLOW) 08/23/18 22:04 Urine Appearance Clear (CLEAR) 08/23/18 22:04 Urine pH 7.0 (4.7-8.0) 08/23/18 22:04 Ur Specific [place] 1.015 (1.005-1.035) 08/23/18 22:04 Urine Protein Negative mg/dL (<30 mg/dL) 08/23/18 22:04 Urine Glucose (UA) Negative mg/dL (NEGATIVE) 08/23/18 22:04 Urine Ketones Negative mg/dL (NEGATIVE) 08/23/18 22:04 Urine Blood Negative (NEGATIVE) 08/23/18 22:04 Urine Nitrate Negative (NEGATIVE) 08/23/18 22:04 Urine Bilirubin Negative (NEGATIVE) 08/23/18 22:04 Urine Urobilinogen 0.2 E.U./dL (<1 E.U./dL) 08/23/18 22:04 Ur Leukocyte Esterase Trace Tao/uL (NEGATIVE) H 08/23/18 22:04 Urine RBC None /hpf (0-2) 08/23/18 22:04 Urine WBC 0 - 2 /hpf (0-6) 08/23/18 22:04 Ur Epithelial Cells 0 - 2 /hpf (0-5) 08/23/18 22:04 Urine HCG, Qual Negative (NEGATIVE) 08/23/18 22:04 RPR Nonreactive (NONREACTIVE) 08/24/18 10:15 - Hospital Course Hospital Course: Anthony Ji, PGY1 Discharge Summary for Raysa Patient is a 18 yo F with h/o abdominal pain (2 year undefined intermittent) who presented with acute abdominal pain. She states that for the last 2 days she has had constant, sharp, non-radiating RUQ/R flank pain that is usually worse with movement and ambulation. She states that she did not take anything to help with pain. In the past, she states she has taken 1 tab of ibuprofen PRN without relief. She reports following with a GI doc as outpatient recently with unremarkable blood work and ultrasound. She says she has normal bowel movements and has no difficulty. In the past she had colonoscopy in January 2018 with normal mucosa with negative biopsy. Initially patient started on vanco and zosyn by night team. TOradol was also given for pain. CT A/P showed some edema in the muscles of the anterior abdominal wall and subcutaneous edema -- which may be related to exercise induced muscular trauma. Patient is active and goes to gym but denies any recent trauma or relation to physical exertion/activity. GI and ID were placed on consult. GI diagnosed this as acute on chronic abdominal pain, likely msk in origin. Stool was also noted on CT so constipation may also be a factor. However, their recs were that patient just needs pain control with NSAID and daily miralax for constipation. Given stable findings, normal labs, and clinica lly improving abdominal pain, patient is hemodynamically stable for discharge to home. Will be given naproxen and miralax upon discharge. She will follow up with PMD and her GI doctor upon discharge. Discharge Exam - Head Exam Head Exam: ATRAUMATIC, NORMAL INSPECTION - Eye Exam Eye Exam: EOMI, Normal appearance Pupil Exam: NORMAL ACCOMODATION - ENT Exam ENT Exam: Mucous Membranes Moist - Respiratory Exam Respiratory Exam: absent: Accessory Muscle Use, Chest Wall Tenderness, Rales, Rhonchi, Wheezes, Respiratory Distress, Stridor - Cardiovascular Exam Cardiovascular Exam: RRR, +S1, +S2 - GI/Abdominal Exam GI & Abdominal Exam: Normal Bowel Sounds, Tenderness (Mild tenderness to palpation of epigastric region.). absent: Firm, Guarding, Rebound, Rigid - Extremities Exam Extremities exam: normal capillary refill, pedal pulses present - Neurological Exam Neurological exam: Alert, CN II-XII Intact, Normal Gait, Oriented x3, Reflexes Normal - Psychiatric Exam Psychiatric exam: Normal Affect, Normal Mood - Skin Skin Exam: Dry, Intact, Normal Color, Warm Discharge Plan - Discharge Medications Prescriptions: Naproxen 500 mg PO BID PRN #14 tablet PRN Reason: Pain, Moderate (4-7) Polyethylene Glycol 3350 [Miralax] 17 gm PO DAILY #7 ml - Follow Up Plan Condition: GOOD Disposition: HOME/ ROUTINE Instructions: Constipation, Adult (DC), Acute Abdomen (Belly Pain), Adult (DC) Additional Instructions: Please follow up with your primary care doctor within 3-4 days of discharge Please follow up with your GI doctor as outpatient (Dr. Josue) within 1 week of discharge You are being discharged on two meds: - Naproxen 500 mg twice a day as needed for musculoskeletal pain - Miralax 17g once daily for constipation Please return to the nearest Emergency Department if your symptoms worsen or reoccur <Bismark Tabares - Last Filed: 08/25/18 07:38> Provider - Provider Date of Admission: 08/24/18 00:41 Attending physician: Bismark Tabares MD Consults: 08/24/18 01:25 Gastroenterology Consult Routine Comment: Consulting Provider: Bhavya Arzola Consulting Physician: Bhavya Arzola Reason for Consult: abdominal tenderness, myositis/fascitis seen on prelim CT Infectious Disease Consult Routine Comment: Consulting Provider: Chai Odell Consulting Physician: Chai Odell Reason for Consult: abdominal tenderness, myositis/fascitis seen on prelim CT Hospital Course - Lab Results Lab Results: Micro Results 08/24/18 00:35 Blood Blood Culture - Preliminary NO GROWTH AFTER 24 HOURS 08/24/18 00:35 Blood Blood Culture - Preliminary NO GROWTH AFTER 24 HOURS Most Recent Lab Values WBC 4.1 10^3/uL (4.5-11.0) L 08/23/18 22:04 RBC 4.12 10^6/uL (3.5-6.1) 08/23/18 22:04 Hgb 11.2 g/dL (12.0-16.0) L 08/23/18 22:04 Hct 34.5 % (36.0-48.0) L 08/23/18 22:04 MCV 83.7 fl (80.0-105.0) D 08/23/18 22:04 MCH 27.2 pg (25.0-35.0) 08/23/18 22:04 MCHC 32.5 g/dl (31.0-37.0) 08/23/18 22:04 RDW 13.0 % (11.5-14.5) 08/23/18 22:04 Plt Count 167 10^3/uL (120.0-450.0) 08/23/18 22:04 MPV 10.4 fl (7.0-11.0) 08/23/18 22:04 Neut % (Auto) 44.8 % (50.0-68.0) L 08/23/18 22:04 Lymph % (Auto) 48.8 % (22.0-35.0) H 08/23/18 22:04 [place] % (Auto) 3.7 % (1.0-6.0) 08/23/18 22:04 Eos % (Auto) 2.5 % (1.5-5.0) 08/23/18 22:04 Baso % (Auto) 0.2 % (0.0-3.0) 08/23/18 22:04 Lymph # (Auto) 2.0 (1.2-3.4) 08/23/18 22:04 [place] # (Auto) 0.2 (0.1-0.6) 08/23/18 22:04 Eos # (Auto) 0.1 (0.0-0.7) 08/23/18 22:04 Baso # (Auto) 0.01 K/mm3 (0.0-2.0) 08/23/18 22:04 Absolute Neuts (auto) 1.82 (1.4-6.5) 08/23/18 22:04 PT 11.6 SECONDS (9.4-12.5) 08/23/18 22:04 INR 1.05 08/23/18 22:04 APTT 32.9 Seconds (26.9-38.3) 08/23/18 22:04 Sodium 141 mmol/L (132-148) 08/23/18 22:04 Potassium 3.7 mmol/L (3.6-5.0) 08/23/18 22:04 Chloride 107 mmol/L (98-107) 08/23/18 22:04 Carbon Dioxide 24 mmol/L (21-33) 08/23/18 22:04 Anion Gap 14 (10-20) 08/23/18 22:04 BUN 4 mg/dL (7-21) L 08/23/18 22:04 Creatinine 0.4 mg/dl (0.7-1.2) L 08/23/18 22:04 Est GFR ( Amer) > 60 08/23/18 22:04 Est GFR (Non-Af Amer) > 60 08/23/18 22:04 Random Glucose 88 mg/dL (70-110) 08/23/18 22:04 Calcium 9.3 mg/dL (8.4-10.5) 08/23/18 22:04 Magnesium 1.8 mg/dL (1.7-2.2) 08/23/18 22:04 Total Bilirubin 0.4 mg/dL (0.2-1.3) 08/23/18 22:04 AST 41 U/L (14-36) H D 08/23/18 22:04 ALT 37 U/L (7-56) 08/23/18 22:04 Alkaline Phosphatase 59 U/L (38-126) 08/23/18 22:04 Total Creatine Kinase 762 U/L (35-230) H 08/24/18 10:15 CK-MB (CK-2) < 0.2 ng/mL (0.0-3.6) 08/24/18 10:15 CK-MB (CK-2) % Cancelled 08/24/18 10:15 Total Protein 7.9 g/dL (5.8-8.3) 08/23/18 22:04 Albumin 4.2 g/dL (3.0-4.8) 08/23/18 22:04 Globulin 3.7 gm/dL 08/23/18 22:04 Albumin/Globulin Ratio 1.1 (1.1-1.8) 08/23/18 22:04 Lipase 57 U/L (23-300) 08/23/18 22:04 Urine Color Light yellow (YELLOW) 08/23/18 22:04 Urine Appearance Clear (CLEAR) 08/23/18 22:04 Urine pH 7.0 (4.7-8.0) 08/23/18 22:04 Ur Specific [place] 1.015 (1.005-1.035) 08/23/18 22:04 Urine Protein Negative mg/dL (<30 mg/dL) 08/23/18 22:04 Urine Glucose (UA) Negative mg/dL (NEGATIVE) 08/23/18 22:04 Urine Ketones Negative mg/dL (NEGATIVE) 08/23/18 22:04 Urine Blood Negative (NEGATIVE) 08/23/18 22:04 Urine Nitrate Negative (NEGATIVE) 08/23/18 22:04 Urine Bilirubin Negative (NEGATIVE) 08/23/18 22:04 Urine Urobilinogen 0.2 E.U./dL (<1 E.U./dL) 08/23/18 22:04 Ur Leukocyte Esterase Trace Tao/uL (NEGATIVE) H 08/23/18 22:04 Urine RBC None /hpf (0-2) 08/23/18 22:04 Urine WBC 0 - 2 /hpf (0-6) 08/23/18 22:04 Ur Epithelial Cells 0 - 2 /hpf (0-5) 08/23/18 22:04 Urine HCG, Qual Negative (NEGATIVE) 08/23/18 22:04 RPR Nonreactive (NONREACTIVE) 08/24/18 10:15 Attending/Attestation - Attestation I have personally seen and examined this patient.: Yes I have fully participated in the care of the patient.: Yes I have reviewed all pertinent clinical information, including history, physical exam and plan: Yes Notes (Text): 08/24/18 18 year old female who presented with complaint of right sided abdominal pain. She reports she had a recent colonoscopy (01/2018) which was poorly prepped and recent ultrasound which was negative. Here she had CT abd/pelvis which showed some edema in the muscles of the anterior abdominal wall and subcutaneous edema (which may be related to exercise induced muscular trauma). Patient reported she does work out in the gym but denied any recent trauma or strenous activity. Patient was seen by GI and ID. Her abdominal symptoms improved. She was tolerating diet. Patient is discharged home to follow up with pmd and GI. Continue with NSAID for possible musculoskeletal pain. Continue with miralax prn for constipation. Avoid strenous exercise / activity. Bismark Tabares MD Hospitalist.
--- NOTE | 2018-08-24 21:22 | CON ---
DATE: 08/24/2018 The patient is seen in room 368, bed 2, seen earlier this morning. CHIEF COMPLAINT: Right upper quadrant pain x1 day duration. HISTORY OF PRESENT ILLNESS: This is a 18-year-old female who is originally from [place] who states that she has had this right upper quadrant pain on and off for 2 years, seen by a electric lineman, had endoscopy, all revealed negative. Had certain amount of workup, she is not quite what was done and now is admitted with new onset of right upper quadrant pain and feels that is the same as others. She denies any nausea or vomiting. No diarrhea or constipation. No dysuria or frequency. No headaches. No joint pain. No rash. No neck pain. No blurred vision and she has no fevers and no chills. PAST MEDICAL HISTORY: Noncontributory. PAST SURGICAL HISTORY: Significant only for colonoscopy. ALLERGIES: THE PATIENT HAS NO KNOWN ALLERGIES. MEDICATIONS: She takes no medications at home most of the time. At this time, is taking MiraLax and Naprosyn. SOCIAL HISTORY: Her last travel was when she was in [place] 2-1/2 years ago. She is not sexually active. She lives with her family. No exposure to animals. No exposure to tuberculosis, not at least in [place]. PHYSICAL EXAMINATION: GENERAL: She is in bed. VITAL SIGNS: Temperature is 98, blood pressure is 125/70, respiratory rate of 20, heart rate of 73. Examination of HEENT is unremarkable. NECK: Supple. LUNGS: Have decreased breath sounds. HEART: Normal S1, S2. ABDOMEN: Mild tenderness in the right upper quadrant, but no rebound or guarding. No masses. LABORATORY EXAMINATION: Reveals a white count of 4.1 and hemoglobin 11. Chemistries reveal a BUN of 4, creatinine of 0.4. CK is 762. Lipase is normal. Urinalysis is unremarkable and RPR is negative. Microbiology is pending and the patient had a CAT scan of the abdomen and pelvis, results are noted. ASSESSMENT AND PLAN: This is a 18-year-old female with right upper quadrant pain, questionable myositis and she has never been sexually active with Chlamydia and GC and Mauf-Sref-Dnterv syndrome will be less likely. We will order an HIV test because of her age. Recommend an aldolase and a vasculitis workup and [place], sed rate, C-reactive protein. Check on the culture, blood culture, urine culture and started on ceftriaxone and pending the hepatitis profile and sed rate, C-reactive protein, and aldolase and a vasculitis workup. We will make further recommendations based on those initial workups. Duke Arroyo MD
[2018-08-26 07:51] LABS: HEPATITIS B SURFACE AG Negative (NEGATIVE)
[2018-08-26 07:58] LABS: HEPATITIS A IGM NEGATIVE (NEGATIVE); HEPATITIS B CORE AB NEGATIVE (NEGATIVE)
[2018-08-26 08:09] LABS: HEPATITIS C ANTIBODY NEGATIVE (NEGATIVE)
== END 2018-08-24 18:17 | disposition home or self-care (01) ==
LOC: ED 19:50 → INTOOBSV 08-24 00:41 → ERH 08-24 00:41 → 3RNO 08-24 02:05
PROVIDERS: ADMIT Internal Medicine; ATTEND Internal Medicine
DX: M72.9 Fibroblastic disorder, unspecified (principal); M60.9 Myositis, unspecified; G89.29 Other chronic pain; K52.9 Noninfective gastroenteritis and colitis, unspecified; K59.00 Constipation, unspecified
CPT/HCPCS: 36415; 71045; 74177; 80053; 80074; 81001; 81025; 82550; 82553; 83690; 83735; 84703; 85025; 85610; 85730; 86592; 86780; 87040; 87086; 87389; 96374; 99285; G0378; J0696; J1885; J2543; J7030; Q9967

== ENCOUNTER 2018-08-30 10:03 | Outpatient (CLI) | payer MEDICAID | END 2018-08-30 10:04 | disposition home or self-care (01) | LOC: RAD 10:03 | DX: R10.11 Right upper quadrant pain (principal) ==